=== PATIENT | male | born 1940 | race Caucasian/White ===

== ENCOUNTER → 2017-07-09 | Outpatient (CLI) | payer OTHER, MEDICARE ==
[~2017-07-09] MED LIST: AMLO5; AMOCLA500 PO; ASCO1ER; ASPI81CH PO; ATOR10; ATOR40TA PO; Advil200 M1 PO; BENAML10/40 PO; Bupropion Xl150 MG PO; CEPH500 PO; CHOL10002; CLOP75 PO; FISH1000; FOLI400; HYDR1TAB94 PO; IBUP200; IBUP800 PO; Isosorbide Mono30 MG PO; KRILL OIL 1,001 EAC1 PO; LAVAP17G PO; LOSA50 PO; Levaquin500 MG PO; Lotrel 10-20 M1 EACH PO; MEGARED OMEGA-1 EAC1 PO; METO5A; MIRALAX17 GM; Multiple Vitam1 EAC1 PO; NAPR500 PO; NIAC500; Norco 5-325 Ta1 EACH PO; ONDA8 PO; OXYACE5T PO; PANT40; PANT40 PO; PROM25 PO; PROP80ER PO; Saw Palmetto160 MG PO; TAMS.4ER PO; TOCO400; VITAMIN B12-FO1 EACH; VITAMIN E1000 UNIT; Vitamin C500 M3 PO; Zofran Odt4 MG SL
[2017-07-09 14:37] LABS: BASOPHILS ABSOLUTE AUTO 0.03 K/mm3 (0.00-0.23); BASOPHILS PERCENT AUTO 0 % (0-2); EOSINOPHILS ABSOLUTE AUTO 0.14 K/mm3 (0.00-0.68); EOSINOPHILS PERCENT AUTO 1 % (0-6); Hematocrit 37.5 % (37.0-53.0); Hemoglobin 12.7 g/dL (13.5-17.5); IMMATURE GRAN ABSOLUTE AUTO 0.07 K/mm3 (0.00-0.10); IMMATURE GRAN PERCENT AUTO 1 % (0-1); LYMPHOCYTES ABSOLUTE AUTO 2.67 K/mm3 (0.84-5.20); LYMPHOCYTES PERCENT AUTO 22 % (21-46); MONOCYTES ABSOLUTE AUTO 1.03 K/mm3 (0.16-1.47); MONOCYTES PERCENT AUTO 8 % (4-13); Mean Corpuscular HGB 30.8 pg (26.0-34.0); Mean Corpuscular HGB Conc 33.9 g/dL (31.5-36.5); Mean Corpuscular Volume 91 fL (80-100); NEUTROPHILS ABSOLUTE AUTO 8.46 K/mm3 (1.96-9.15); NEUTROPHILS PERCENT AUTO 68 % (41-73); RDW Coefficient Variation 13.2 % (11.7-14.2); RDW Standard Deviation 43.1 fL (35.1-46.3); Red Blood Cell Count 4.13 M/mm3 (4.30-5.90)
[2017-07-09 14:49] LABS: Mean Platelet Volume 9.9 fL (9.1-12.4); Platelet Count 301 K/mm3 (150-400)
[2017-07-09 14:52] LABS: Alanine Aminotransfer (ALT/SGP 25 U/L (12-78); Albumin, Blood 3.4 g/dL (3.4-5.0); Albumin/Globulin Ratio 0.9 (0.8-1.8); Alk Phos 129 U/L (40-126); Anion Gap 8 mmol/L (6-16); Aspartate Aminotrans (AST/SGOT 33 U/L (12-37); Bilirubin, Total 0.6 mg/dL (0.1-1.0); Blood Urea Nitrogen 19 mg/dL (8-24); Bun/Creatinine Ratio 18.6 (12.0-20.0); CO2, Blood 30 mmol/L (21-32); Calcium, Blood 9.2 mg/dL (8.5-10.1); Chloride, Blood 103 mmol/L (98-108); Creatinine, Blood 1.02 mg/dL (0.60-1.20); Glomerular Filtration Rate >60 (60-); Glucose, Blood 100 mg/dL (70-99); Potassium, Blood 4.4 mmol/L (3.5-5.5); Sodium, Blood 141 mmol/L (136-145); Total Protein, Blood 7.4 g/dL (6.4-8.2)
== END | disposition home or self-care (01) ==
LOC: LAB EV 14:29
PROVIDERS: Physician Assistant
DX: R05 Cough (principal); R00.1 Bradycardia, unspecified
CPT/HCPCS: 80053; 83880; 84484; 85025

== ENCOUNTER 2017-10-05 05:37 | Observation (INO) | payer OTHER ==
[~2017-10-05] VITALS: Ht 170.2 cm; Wt 95.8 kg
[~2017-10-05 05:37] MED LIST changes: -AMOCLA500 PO; -ASPI81CH PO; -CLOP75 PO; -Isosorbide Mono30 MG PO; -LOSA50 PO; -MIRALAX17 GM; -Norco 5-325 Ta1 EACH PO; -Saw Palmetto160 MG PO
[2017-10-05] MEDS ORDERED: ASPI81CH PO (06:29)
[2017-10-05] MEDS ORDERED: MIRALAX17 GM (06:30)
[2017-10-05] MEDS ORDERED: CLOP75 PO (09:25)
[2017-10-05] MEDS ORDERED: Isosorbide Mono30 MG PO (09:27)
[2017-10-05] MEDS ORDERED: PANT40 PO (09:28)
== END 2017-10-05 16:43 | disposition short-term general hospital (02) ==
LOC: MHTC 05:37 → ICUW 08:10
DX: I25.10 Atherosclerotic heart disease of native coronary artery without angina pectoris (principal); I10 Essential (primary) hypertension; R06.02 Shortness of breath; R42 Dizziness and giddiness
CPT/HCPCS: 93458; 96360; 96361; 99152; 99153; C1769; C1894; G0378; J0360; J0690; J1644; J2250; J3010; J7030; Q9967

== ENCOUNTER 2017-12-05 04:27 | Emergency (ER) | payer OTHER ==
[~2017-12-05] VITALS: Ht 170.2 cm; Wt 85.3 kg
[~2017-12-05 04:27] MED LIST changes: +ASPI81CH PO; +CLOP75 PO; +Isosorbide Mono30 MG PO; +MIRALAX17 GM
[2017-12-05] MEDS ORDERED: LOSA50 PO (05:14)
[2017-12-05] MEDS ORDERED: Saw Palmetto160 MG PO (05:16)
[2017-12-05] MEDS ORDERED: MEGARED OMEGA-1 EAC1 PO (05:17)
[2017-12-05 05:21] LABS: BASOPHILS ABSOLUTE AUTO 0.05 K/mm3 (0.00-0.23); BASOPHILS PERCENT AUTO 0 % (0-2); EOSINOPHILS ABSOLUTE AUTO 0.24 K/mm3 (0.00-0.68); EOSINOPHILS PERCENT AUTO 1 % (0-6); Hematocrit 36.6 % (37.0-53.0); Hemoglobin 11.3 g/dL (13.5-17.5); IMMATURE GRAN ABSOLUTE AUTO 0.05 K/mm3 (0.00-0.10); IMMATURE GRAN PERCENT AUTO 0 % (0-1); LYMPHOCYTES ABSOLUTE AUTO 1.74 K/mm3 (0.84-5.20); LYMPHOCYTES PERCENT AUTO 9 % (21-46); MONOCYTES ABSOLUTE AUTO 1.18 K/mm3 (0.16-1.47); MONOCYTES PERCENT AUTO 6 % (4-13); Mean Corpuscular HGB 26.8 pg (26.0-34.0); Mean Corpuscular HGB Conc 30.9 g/dL (31.5-36.5); Mean Corpuscular Volume 87 fL (80-100); Mean Platelet Volume 9.6 fL (9.1-12.4); NEUTROPHILS ABSOLUTE AUTO 15.17 K/mm3 (1.96-9.15); NEUTROPHILS PERCENT AUTO 82 % (41-73); Platelet Count 258 K/mm3 (150-400); RDW Coefficient Variation 17.6 % (11.7-14.2); RDW Standard Deviation 56.8 fL (35.1-46.3); Red Blood Cell Count 4.21 M/mm3 (4.30-5.90); White Blood Cell Count 18.43 K/mm3 (4.00-11.30)
[2017-12-05 05:44] LABS: Alanine Aminotransfer (ALT/SGP 18 U/L (12-78); Albumin, Blood 3.4 g/dL (3.4-5.0); Albumin/Globulin Ratio 0.8 (0.8-1.8); Alk Phos 135 U/L (50-136); Anion Gap 9 mmol/L (6-16); Aspartate Aminotrans (AST/SGOT 12 U/L (12-37); Bilirubin, Total 0.5 mg/dL (0.1-1.0); Blood Urea Nitrogen 20 mg/dL (8-24); Bun/Creatinine Ratio 21.8 (12.0-20.0); CO2, Blood 27 mmol/L (21-32); Chloride, Blood 104 mmol/L (98-108); Creatinine, Blood 0.92 mg/dL (0.60-1.20); Glomerular Filtration Rate >60 (60-); Glucose, Blood 109 mg/dL (70-99); Potassium, Blood 3.9 mmol/L (3.5-5.5); Sodium, Blood 140 mmol/L (136-145); Total Protein, Blood 7.4 g/dL (6.4-8.2); Troponin I <0.015 ng/mL (0.000-0.040)
[2017-12-05] MEDS ORDERED: Zofran Odt4 MG SL (09:08)
[2017-12-05] MEDS ORDERED: Norco 5-325 Ta1 EACH PO (09:08)
== END 2017-12-05 09:21 | disposition home or self-care (01) ==
LOC: ER 04:27
PROVIDERS: Emergency Medicine
DX: K85.90 Acute pancreatitis without necrosis or infection, unspecified (principal); K57.30 Diverticulosis of large intestine without perforation or abscess without bleeding; I10 Essential (primary) hypertension; Z79.899 Other long term (current) drug therapy; Z79.82 Long term (current) use of aspirin; Z79.01 Long term (current) use of anticoagulants
CPT/HCPCS: 36415; 74176; 76705; 80053; 81000; 83690; 84484; 85025; 93005; 93010; 99284-25

== ENCOUNTER 2020-07-05 08:34 | Emergency (ER) | payer OTHER, SELFPAY ==
[~2020-07-05] VITALS: Ht 170.2 cm; Wt 86.2 kg
[~2020-07-05 08:34] MED LIST changes: +AMOCLA500 PO; +LOSA50 PO; +Norco 5-325 Ta1 EACH PO; +Saw Palmetto160 MG PO
[2020-07-05] MEDS ORDERED: AMLO5 PO (09:02)
[2020-07-05] MEDS ORDERED: BUPR150ER PO (09:02)
[2020-07-05] MEDS ORDERED: METO25 PO (09:02)
[2020-07-05] MEDS ORDERED: Voltaren100 GM TOP (11:15)
[2020-10-28] MEDS ORDERED: LOSARTAN POTAS100 M1 PO (13:25)
[2020-10-28] MEDS ORDERED: ATOR80 PO (13:25)
== END 2020-07-05 11:20 | disposition home or self-care (01) ==
LOC: ER 08:34
DX: S43.421A Sprain of right rotator cuff capsule, initial encounter (principal); I10 Essential (primary) hypertension; Z79.02 Long term (current) use of antithrombotics/antiplatelets; Z79.82 Long term (current) use of aspirin; Z79.899 Other long term (current) drug therapy; X58.XXXA Exposure to other specified factors, initial encounter
CPT/HCPCS: 73030; 93005; 93010; 99283-25

== ENCOUNTER 2020-08-11 12:25 | Day surgery (SDC) | payer OTHER ==
[~2020-08-11] VITALS: Ht 170.2 cm; Wt 85.9 kg
[~2020-08-11 12:25] MED LIST changes: +AMLO5 PO; +BUPR150ER PO; +METO25 PO; +Voltaren100 GM TOP
== END 2020-08-11 14:44 | disposition home or self-care (01) ==
LOC: ORSCSDS 12:25
PROVIDERS: Internal Medicine Gastroenterology
PROC: 0DB58ZX Excision of Esophagus, Via Natural or Artificial Opening Endoscopic, Diagnostic (ICD-10-PCS; principal; 2020-08-11 13:45)
PROC: 0DJD8ZZ Inspection of Lower Intestinal Tract, Via Natural or Artificial Opening Endoscopic (ICD-10-PCS; principal; 2020-08-11 13:45)
DX: Z12.11 Encounter for screening for malignant neoplasm of colon (principal); K57.30 Diverticulosis of large intestine without perforation or abscess without bleeding; Z86.010 Personal history of colon polyps; K22.70 Barrett's esophagus without dysplasia; G47.33 Obstructive sleep apnea (adult) (pediatric); I25.10 Atherosclerotic heart disease of native coronary artery without angina pectoris; Z95.1 Presence of aortocoronary bypass graft; Z79.899 Other long term (current) drug therapy
CPT/HCPCS: 43239; G0105; 88305; 88312; J2704; J7120

== ENCOUNTER 2020-11-06 11:13 | Day surgery (SDC) | payer OTHER ==
[~2020-11-06] VITALS: Ht 170.2 cm; Wt 86.3 kg
[~2020-11-06 11:13] MED LIST changes: +ATOR80 PO; +LOSARTAN POTAS100 M1 PO
[2020-11-06] MEDS ORDERED: AMLODIPINE BESYL5 MG PO (12:40)
--- NOTE | 2020-11-06 13:21 | NUR ---
11/06/20 1321 Doyle Monzon 1 MG EPI ADDED TO EACH OF THE FIRST 3 BAGS OF LR PER ORDER FOR IRRIGATION.
--- NOTE | 2020-11-06 15:24 | NUR ---
11/06/20 1524 MIRIAM GÓMEZ LEFT EYE - DISCOMFORT NOTED. WARM WET CLOTH PROVIDED. STATES FEELING BETTER. JOANN SPOKE TO DR. BLANDON ABOUT THIS, SUGGESTED NON-STEROIDAL OTC EYE DROPS FOR COMFORT.
== END 2020-11-06 11:53 | disposition home or self-care (01) ==
LOC: ORSCSDS 11:13
PROVIDERS: Orthopaedic Surgery
PROC: 0LQ14ZZ Repair Right Shoulder Tendon, Percutaneous Endoscopic Approach (ICD-10-PCS; principal; 2020-11-06 12:45)
PROC: 0PB94ZZ Excision of Right Clavicle, Percutaneous Endoscopic Approach (ICD-10-PCS; principal; 2020-11-06 12:45)
PROC: 0RNJ4ZZ Release Right Shoulder Joint, Percutaneous Endoscopic Approach (ICD-10-PCS; principal; 2020-11-06 12:45)
DX: M75.121 Complete rotator cuff tear or rupture of right shoulder, not specified as traumatic (principal); M75.21 Bicipital tendinitis, right shoulder; M75.41 Impingement syndrome of right shoulder; M19.011 Primary osteoarthritis, right shoulder; I10 Essential (primary) hypertension; I25.10 Atherosclerotic heart disease of native coronary artery without angina pectoris; G47.33 Obstructive sleep apnea (adult) (pediatric); N18.30 Chronic kidney disease, stage 3 unspecified; Z79.899 Other long term (current) drug therapy
CPT/HCPCS: C1713; J0171; J0690; J1100; J2250; J2405; J2704; J3010; J7120

== ENCOUNTER 2024-11-22 11:22 | Emergency (ER) | payer OTHER ==
[~2024-11-22] VITALS: Ht 170.2 cm; Wt 85.3 kg
[~2024-11-22 11:22] MED LIST changes: +AMLODIPINE BESYL5 MG PO
[2024-11-22 11:27] VITALS: BP 139/75
[2024-11-22] MEDS ORDERED: Lidocaine 4% 1 Patch TOP ONE (14:40)
[2024-11-22] MEDS ORDERED: Ketorolac Tromethamine 15mg Vial IM ONE (14:40)
== END 2024-11-22 15:46 | disposition home or self-care (01) ==
LOC: ER 11:22
DX: M25.562 Pain in left knee (principal); R53.1 Weakness; I10 Essential (primary) hypertension; G47.30 Sleep apnea, unspecified; Z79.82 Long term (current) use of aspirin; Z79.899 Other long term (current) drug therapy
CPT/HCPCS: 73562-LT; 96372; 99284-25; A9270; J1885

== ENCOUNTER 2024-12-25 16:42 | Inpatient (IN) | payer OTHER ==
[~2024-12-25] VITALS: Ht 170.2 cm; Wt 83.9 kg
[2024-12-25] MEDS ORDERED: NS 1,000 ML IV SCH ×2 (17:15→19:25)
[2024-12-25 17:31] LABS: BASOPHILS ABSOLUTE AUTO 0.04 K/mm3 (0.00-0.23); BASOPHILS PERCENT AUTO 0 % (0-2); EOSINOPHILS ABSOLUTE AUTO 0.24 K/mm3 (0.00-0.68); EOSINOPHILS PERCENT AUTO 3 % (0-6); Hematocrit 33.8 % (37.0-53.0); Hemoglobin 11.1 g/dL (13.5-17.5); IMMATURE GRAN ABSOLUTE AUTO 0.05 K/mm3 (0.00-0.10); IMMATURE GRAN PERCENT AUTO 1 % (0-1); LYMPHOCYTES ABSOLUTE AUTO 2.14 K/mm3 (0.84-5.20); LYMPHOCYTES PERCENT AUTO 23 % (21-46); MONOCYTES ABSOLUTE AUTO 0.70 K/mm3 (0.16-1.47); MONOCYTES PERCENT AUTO 8 % (4-13); Mean Corpuscular HGB Conc 32.8 g/dL (31.5-36.5); Mean Corpuscular Volume 94 fL (80-100); NEUTROPHILS ABSOLUTE AUTO 6.09 K/mm3 (1.96-9.15); NEUTROPHILS PERCENT AUTO 66 % (41-73); NRBC ABSOLUTE 0.00 K/mm3 (0.00-0.02); NRBC Auto 0.0 /100 WBC (0.0-0.2); Platelet Count 249 K/mm3 (150-400); RDW Coefficient Variation 14.1 % (11.7-14.2); RDW Standard Deviation 48.8 fL (35.1-46.3)
[2024-12-25 17:59] LABS: C-REACTIVE PROTEIN, EXT RANGE <0.290 mg/dL (0.000-0.300); Magnesium, Blood 1.7 mg/dL (1.6-2.4)
[2024-12-25 18:26] LABS: Anion Gap 6 mmol/L (3-11); Blood Urea Nitrogen 32 mg/dL (8-24); CO2, Blood 25 mmol/L (21-32); Calcium, Blood 9.0 mg/dL (8.5-10.1); Chloride, Blood 110 mmol/L (98-108); Creatinine, Blood 1.94 mg/dL (0.60-1.20); Glucose, Blood 163 mg/dL (70-99); Potassium, Blood 4.1 mmol/L (3.5-5.5); Sodium, Blood 137 mmol/L (136-145); Thyroid Stimulating Hormone 3.540 uIU/mL (0.360-4.800)
[2024-12-25] MEDS ORDERED: Ondansetron HCl 2 MG / ML 2ML Vial IV PRN (19:25)
[2024-12-25] MEDS ORDERED: Heparin Sodium,Porcine 5,000 UNIT/0.5 ML SDV SC SCH (21:00)
[2024-12-25 22:16] VITALS: BP 150/91
[2024-12-25 22:58] LABS: Source, Urine Clean Catch
[2024-12-25 23:01] LABS: Bilirubin, Urine Neg (Neg); Glucose Qualitative, Urine Neg (Neg); Ketones, Urine Neg (Neg); Leukocyte Esterase, Urine Neg (Neg); Protein, Urine 1+ (Neg); Specific Gravity, Urine 1.020 (1.003-1.022); Urobilinogen, Urine NORM (Normal)
[2024-12-25 23:05] LABS: Color, Urine Yellow (P-Yellow)
[2024-12-26 00:06] VITALS: BP 123/73
[2024-12-26 04:36] VITALS: BP 149/85
[2024-12-26 05:44] LABS: CHOL/HDL RATIO 3.0; Cholesterol 103 mg/dL (50-200); HDL Cholesterol 34 mg/dL (>39); LDL/HDL RATIO 1.4; Low Density Lipoprotein Chol 46 mg/dL (0-110); Triglycerides 113 mg/dL (30-160); Very Low Density Lipoprot Chol 22 mg/dL (6-32)
--- NOTE | 2024-12-26 06:39 | NUR ---
ADMISSION AND SHIFT SUMMARY ASSUMED CARE AT 2200. A/Ox4, VSS ON RA. LLE FLACCID, MILD SENSATION INTACT. PT REPORTS RLE WEAKNESS; CAN OVERCOME GRAVITY. NO OTHER DEFICITS NOTED. PT CONTINENT, USING BEDPAN AND URINAL. STAGE II COCCYX WOUND NOTED, REDNESS AT GROIN FOLDS. 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 PT DENIES PAIN, SOB, NAUSEA. MRI SCREENER FAXED.
[2024-12-26 07:32] VITALS: BP 144/79
[2024-12-26 12:56] VITALS: BP 127/83
[2024-12-26] MEDS ORDERED: ZINC OXIDE/PETROLATUM, YELLOW 1 APPLIC/71 GM PASTE TOP PRN (15:45)
--- NOTE | 2024-12-26 17:03 | NUR ---
SHIFT SUMMARY PT AOX4, COOPERATIVE, ABLE TO MAKE NEEDS KNOWN. 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 TOLERATING MEDICATION. PT DID GO DOWN FOR MRI, RESULTS IN CHART. PT EATING VERY LITTLE, LITTLE BMS TO REFLECT. BED IN LOWEST POSITION, CALL LIGHT WITHIN REACH.
[2024-12-26 17:08] VITALS: BP 139/87
[2024-12-26 19:22] VITALS: BP 141/81
[2024-12-27] VITALS (7 sets, daily range): BP systolic 105–157; BP diastolic 71–84
[2024-12-27 05:45] LABS: BASOPHILS ABSOLUTE AUTO 0.05 K/mm3 (0.00-0.23); BASOPHILS PERCENT AUTO 1 % (0-2); EOSINOPHILS ABSOLUTE AUTO 0.30 K/mm3 (0.00-0.68); EOSINOPHILS PERCENT AUTO 3 % (0-6); Hematocrit 33.2 % (37.0-53.0); Hemoglobin 11.1 g/dL (13.5-17.5); IMMATURE GRAN ABSOLUTE AUTO 0.02 K/mm3 (0.00-0.10); IMMATURE GRAN PERCENT AUTO 0 % (0-1); LYMPHOCYTES ABSOLUTE AUTO 2.27 K/mm3 (0.84-5.20); LYMPHOCYTES PERCENT AUTO 23 % (21-46); MONOCYTES ABSOLUTE AUTO 0.66 K/mm3 (0.16-1.47); MONOCYTES PERCENT AUTO 7 % (4-13); Mean Corpuscular HGB Conc 33.4 g/dL (31.5-36.5); Mean Corpuscular Volume 93 fL (80-100); NEUTROPHILS ABSOLUTE AUTO 6.58 K/mm3 (1.96-9.15); NEUTROPHILS PERCENT AUTO 67 % (41-73); NRBC ABSOLUTE 0.00 K/mm3 (0.00-0.02); NRBC Auto 0.0 /100 WBC (0.0-0.2); Platelet Count 222 K/mm3 (150-400); RDW Coefficient Variation 14.0 % (11.7-14.2); RDW Standard Deviation 47.8 fL (35.1-46.3)
--- NOTE | 2024-12-27 06:34 | NUR ---
SHIFT SUMMARY A/Ox4, SB RHYTHM, OTHER VSS ON RA. NO ACUTE CHANGES OVERNIGHT. LLE FLACCID. RLE WEAK. BUE STRENGTH AND MOBILITY INTACT. PT DENIES PAIN, SOB, NAUSEA OR OTHER COMPLAINTS. PT REPORTS CONSTIPATION. WOUND CARE COMPLETED. SAFETY PRECAUTIONS IN PLACE.
[2024-12-27 07:20] LABS: Alanine Aminotransfer (ALT/SGP 18.0 U/L (12-78); Albumin, Blood 3.2 g/dL (3.4-5.0); Albumin/Globulin Ratio 1.0 (0.8-1.8); Anion Gap 7.0 mmol/L (3-11); Aspartate Aminotrans (AST/SGOT 15.0 U/L (12-37); Bilirubin, Total 0.4 mg/dL (0.1-1.0); Blood Urea Nitrogen 27.0 mg/dL (8-24); CO2, Blood 27.0 mmol/L (21-32); Calcium, Blood 8.9 mg/dL (8.5-10.1); Chloride, Blood 108.0 mmol/L (98-108); Creatinine, Blood 1.61 mg/dL (0.60-1.20); Globulin, Blood 3.1 g/dL (2.2-4.0); Glucose, Blood 77.0 mg/dL (70-99); Potassium, Blood 4.0 mmol/L (3.5-5.5); Sodium, Blood 138.0 mmol/L (136-145); Total Protein, Blood 6.3 g/dL (6.4-8.2)
[2024-12-27] MEDS ORDERED: Isosorbide Mononitrate 30 MG TABCR PO SCH (09:00)
[2024-12-27] MEDS ORDERED: Magnesium Hydroxide Conc 10 ML UDC PO PRN (12:15)
--- NOTE | 2024-12-27 12:59 | NUR ---
ASSUMED CARE. LAYING QUIETLY IN BED, PT C/O RIGHT LEG SPASMS WELL LEFT LEG CRAMPING, PT DEALS WITH CHRONIC LOW PAIN. URINAL BETWEEEN LEGS, CALL LIGHT WITHIN REACH.
[2024-12-27] MEDS ORDERED: Miconazole Nitrate 2% 85 GM PWD TOP SCH (14:00)
--- NOTE | 2024-12-27 15:40 | NUR ---
no change in pt condition, cont to have pain minimal to lower extrem, will attempts to get out of bed with lift. pt calls approprialty.
--- NOTE | 2024-12-27 19:16 | NUR ---
asked pt if he wanted to get out of bed for dinner, pt refused said it was too late and wanted to stay in bed. pt repositioned every couple of hours and for comfort, call light within reach will cont to monitor
[2024-12-28 04:20] VITALS: BP 114/72
[2024-12-28 06:00] LABS: BASOPHILS ABSOLUTE AUTO 0.04 K/mm3 (0.00-0.23); BASOPHILS PERCENT AUTO 1 % (0-2); EOSINOPHILS ABSOLUTE AUTO 0.23 K/mm3 (0.00-0.68); EOSINOPHILS PERCENT AUTO 3 % (0-6); Hematocrit 33.5 % (37.0-53.0); Hemoglobin 10.9 g/dL (13.5-17.5); IMMATURE GRAN ABSOLUTE AUTO 0.02 K/mm3 (0.00-0.10); IMMATURE GRAN PERCENT AUTO 0 % (0-1); LYMPHOCYTES ABSOLUTE AUTO 2.52 K/mm3 (0.84-5.20); LYMPHOCYTES PERCENT AUTO 30 % (21-46); MONOCYTES ABSOLUTE AUTO 0.78 K/mm3 (0.16-1.47); MONOCYTES PERCENT AUTO 9 % (4-13); Mean Corpuscular HGB Conc 32.5 g/dL (31.5-36.5); Mean Corpuscular Volume 94 fL (80-100); NEUTROPHILS ABSOLUTE AUTO 4.94 K/mm3 (1.96-9.15); NEUTROPHILS PERCENT AUTO 58 % (41-73); NRBC ABSOLUTE 0.00 K/mm3 (0.00-0.02); NRBC Auto 0.0 /100 WBC (0.0-0.2); Platelet Count 212 K/mm3 (150-400); RDW Coefficient Variation 14.2 % (11.7-14.2); RDW Standard Deviation 48.7 fL (35.1-46.3)
--- NOTE | 2024-12-28 06:33 | NUR ---
SHIFT SUMMARY A/Ox4, VSS ON RA. PT DENIES SOB, NAUSEA. PRN TYLENOL GIVEN FOR MILD PAIN; PT FOUND HELPFUL FOR RLE MUSCLE SPASMS. NO ACUTE CHANGES OVERNIGHT. NO BM AT THIS TIME, ENCOURAGED ADDITIONAL FLUID INTAKE AND EXERCISES PER PT. Q2 TURNS COMPLETED.
[2024-12-28 06:47] LABS: Alanine Aminotransfer (ALT/SGP 19.0 U/L (12-78); Albumin, Blood 3.2 g/dL (3.4-5.0); Albumin/Globulin Ratio 1.0 (0.8-1.8); Anion Gap 8.0 mmol/L (3-11); Aspartate Aminotrans (AST/SGOT 13.0 U/L (12-37); Bilirubin, Total 0.6 mg/dL (0.1-1.0); Blood Urea Nitrogen 31.0 mg/dL (8-24); CO2, Blood 28.0 mmol/L (21-32); Calcium, Blood 9.3 mg/dL (8.5-10.1); Chloride, Blood 104.0 mmol/L (98-108); Creatinine, Blood 1.52 mg/dL (0.60-1.20); Globulin, Blood 3.1 g/dL (2.2-4.0); Glucose, Blood 86.0 mg/dL (70-99); Potassium, Blood 3.8 mmol/L (3.5-5.5); Sodium, Blood 136.0 mmol/L (136-145); Total Protein, Blood 6.3 g/dL (6.4-8.2)
[2024-12-28 07:43] VITALS: BP 124/72
[2024-12-28 09:59] VITALS: BP 123/69
--- NOTE | 2024-12-28 16:56 | NUR ---
SHIFT/DISCHARGE SUMMARY: PATIENT A/OX4, [place], PLEASANT AND COOPERATIVE c CARE. PATIENT DENIES CP/PRESSURE, SOB, N/V AND DIZZINESS. ON TELE, SB/SR HR IN THE MID 50'S TO 60'S c IST AV BLOCK/BBB. PATIENT RECEIVED SCHEDULED MEDS PER EMAR. PATIENT WORK c PT/OT TODAY. PATIENT HAS GOOD APPETITE, CONT OF BLADDER AND USES URINAL IN BED INDEPENDENTLY. PATIENT HAS HAD NO COMPLAINTS OR DENIES NEW CONCERN THIS SHIFT. PIV DC'D. UPDATE GIVEN TO MAURILIO (NEXT OF KIN) VIA PHONE REGARDING DISCHARGE PLAN TO [facility]. MAURILIO VERBALIZED UNDERSTANDING AND NO FURTHER QUESTIONS. PATIENT DISCHARGE TO [facility]. DISCHARGE INSTRUCTIONS PACKET GIVEN TO TRANSPORT PERSONNEL. ALL PERSONAL BELONGINGS WERE SENT c PATIENT. PATIENT LEFT THE ROOM AT 1653 TRANSPORTED VIA WC. TR GIVEN TO ODIN, NURSE AT [facility] AT 1700.
== END 2024-12-28 17:06 | DRG 65 ==
LOC: ER 16:42 → MEDS 16:43
PROVIDERS: Emergency Medicine; Family Medicine; Nurse Practitioner Acute Care; ADMIT Internal Medicine
DX: I63.9 Cerebral infarction, unspecified (principal); G81.94 Hemiplegia, unspecified affecting left nondominant side; N17.9 Acute kidney failure, unspecified; G95.29 Other cord compression; I44.0 Atrioventricular block, first degree; G47.33 Obstructive sleep apnea (adult) (pediatric); I25.10 Atherosclerotic heart disease of native coronary artery without angina pectoris; E78.5 Hyperlipidemia, unspecified; I12.9 Hypertensive chronic kidney disease with stage 1 through stage 4 chronic kidney disease, or unspecified chronic kidney disease; N18.30 Chronic kidney disease, stage 3 unspecified; M48.062 Spinal stenosis, lumbar region with neurogenic claudication; M48.04 Spinal stenosis, thoracic region; M48.02 Spinal stenosis, cervical region; K21.9 Gastro-esophageal reflux disease without esophagitis; N40.0 Benign prostatic hyperplasia without lower urinary tract symptoms; Z90.49 Acquired absence of other specified parts of digestive tract; Z95.1 Presence of aortocoronary bypass graft; Z98.890 Other specified postprocedural states
CPT/HCPCS: 36415; 72141; 72146; 80048; 80053; 80061; 82607; 83036; 83735; 84439; 84443; 85025; 85651; 86140; 93005; 93010; 93306; 93880; 96360; 96361; 96372; 97110; 97112; 97162; 97166; 97530; 99285-25; A9270; G0378; J1644; J7030